=== PATIENT | male | born 1945 | race Caucasian/White ===

== ENCOUNTER 2017-04-07 10:19 | Emergency (ER) | payer MEDICARE, OTHER ==
--- NOTE | 2017-04-07 13:29 | RAD ---
THREE VIEWS LEFT FOOT: HISTORY: A 71-year-old with a history of pain. FINDINGS: AP, lateral, and oblique views of the left foot are obtained. The right toe nail is lifted off the great toe. No definite evidence of fractures or bony lesions s een. Some small vessel calcifications noted. IMPRESSION: No evidence of acute osseous lesions. POS: [facility]
== END 2017-04-07 11:43 | disposition home or self-care (01) ==
LOC: SCSER 10:19
DX: S91.202A Unspecified open wound of left great toe with damage to nail, initial encounter (principal); E11.9 Type 2 diabetes mellitus without complications; E78.5 Hyperlipidemia, unspecified; I10 Essential (primary) hypertension; F17.220 Nicotine dependence, chewing tobacco, uncomplicated; Z85.048 Personal history of other malignant neoplasm of rectum, rectosigmoid junction, and anus; Z92.21 Personal history of antineoplastic chemotherapy; Z92.3 Personal history of irradiation; Z79.4 Long term (current) use of insulin; Z79.82 Long term (current) use of aspirin; Z79.899 Other long term (current) drug therapy; W22.8XXA Striking against or struck by other objects, initial encounter